=== PATIENT | male | born 1975 | race Caucasian/White ===

== ENCOUNTER 2017-08-25 17:24 | Emergency (ER) | payer OTHER ==
[~2017-08-25] VITALS: Ht 180.3 cm; Wt 105.0 kg
[2017-08-25 17:48] VITALS: BP 156/83; PULSE 109; RESP 16; TEMP 99.5; O2SAT 98
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
[2017-08-25] MEDS ORDERED: CEPHALEXIN MONOHYDRATE 500 MG CAP PO ONE (19:45)
[2017-08-25] MEDS ORDERED: TETANUS/DIPHTHERIA TOXOID ADULT 0.5 ML VIAL IM ONE (19:45)
[2017-08-25] MEDS ORDERED: LIDOCAINE 2% JELLY 30 ML TUBE TOPICAL ONE (19:45)
[2017-08-25] MEDS ORDERED: DICL75TA PO (19:58)
[2017-08-25] MEDS ORDERED: CYCL10TA PO (19:58)
[2017-08-25] MEDS ORDERED: NORC5TAB PO (19:58)
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
[2017-08-25 21:04] VITALS: BP 142/89
== END 2017-08-25 21:05 | disposition home or self-care (01) ==
LOC: NEPD 17:24
DX: S80.02XA Contusion of left knee, initial encounter (principal); S60.221A Contusion of right hand, initial encounter; S00.83XA Contusion of other part of head, initial encounter; V29.88XA Motorcycle rider (driver) (passenger) injured in other specified transport accidents, initial encounter; Z23 Encounter for immunization
CPT/HCPCS: 73120; 73564; 90471; 90714; 99283; L1830